=== PATIENT | female | born 1975 ===

== ENCOUNTER 2024-03-03 12:00 | Emergency (ER) | payer BC, SELFPAY ==
[2024-03-03 12:05] VITALS: BP 153/93; PULSE 99; RESP 20; TEMP 36.2; O2SAT 96
--- NOTE | 2024-03-03 12:17 | ECG_ITS ---
Test Date: 2024-03-03 12:20:18 Measurements Intervals [place] Rate: 92 P: 50 AL: 172 QRS: 15 QRSD: 91 T: 67 QT: 361 QTc: 449 Interpretive Statements SINUS RHYTHM NORMAL ELECTROCARDIOGRAM No previous ECG available for comparison Electronically Signed On 03-03-2024 13:50:34 CDT by Crow Dye M.D.
[2024-03-03 14:17] VITALS: BP 183/113; PULSE 85; RESP 16; O2SAT 100
--- NOTE | 2024-03-03 14:46 | ED.ANXIETY ---
HPI - Anxiety General Chief Complaint: Anxiety Stated Complaint: high blood pressure/anxiety Time Seen by Provider: 03/03/24 14:29 History of Present Illness HPI narrative: 48-year-old female presenting to the emergency department for evaluation for increased anxiety. Patient does have a diagnosis of anxiety but does not take anything. Patient was actually at [facility] when she was visiting a family member. Patient states that there was a no other patient at [facility] that became loud and disruptive in this triggered a panic attack. Patient felt that her blood pressure was elevated and on checking her blood pressure at the facility she was 190 systolic. Patient denies any prior history of chest pain. Patient declined any medications for anxiety because she has to drive back to [facility]. Related Data Allergies Allergy/AdvReac Type Severity Reaction Status Date / Time No Known Allergies Allergy Verified 03/03/24 14:21 Review of Systems Review of Systems: All systems reviewed & are unremarkable except as noted in HPI and below PMFSH Social History Social History Substance use type: does not use Exam Narrative: APPEARANCE: Well appearing, no pain, no distress, well-nourished. HEAD: normocephalic, atraumatic. EYES: PERRLA/EOMI, conjunctivae clear. NOSE: Normal no drainage EARS:TMS clear with good light reflex. THROAT: Pharynx clear, no exudate. NECK: Supple. No adenopathy, no masses. RESPIRATORY: Airway patent, respirations nonlabored. Clear to auscultation bilaterally, no rales, rhonchi, wheezing. CARDIOVASCULAR: Regular rate and rhythm without murmurs rubs or gallops. ABDOMINAL: Soft, nontender, nondistended, normal bowel sounds MUSCULOSKELETAL: Moves all extremities. Strength/ROM intact, No edema, No calf tenderness. NEURO: Alert. Cranial nerves II through XII intact. Grossly intact SKIN: Warm, dry. Normal Color PSYCHIATRIC: Anxious affect Course Course Emergency Course: Patient felt improved with treatment. Vital Signs Vital signs: Vital Signs Temperature 97.2 F L 03/03/24 12:05 Pulse Rate 99 03/03/24 12:05 Respiratory Rate 20 03/03/24 12:05 Blood Pressure 153/93 H 03/03/24 12:05 Pulse Oximetry 96 03/03/24 12:05 Temperature 97.2 F L 03/03/24 12:05 Pulse Rate 90 03/03/24 18:24 Respiratory Rate 18 03/03/24 18:24 Blood Pressure 166/83 H 03/03/24 18:24 Pulse Oximetry 99 03/03/24 18:24 Oxygen Delivery Room Air 03/03/24 14:17 MDM - Anxiety MDM Narrative Medical decision making narrative: 40-year-old female presenting ED for evaluation for anxiety and hypertension. Patient was afebrile with a minor leukocytosis 13.4 but a stable hemoglobin of 13.5. Patient had no acute abnormalities on her CMP. Patient had negative serial troponins. Differential Diagnosis Differential diagnosis: Likely hyperventilation, panic disorder, acute anxiety and other Lab Data Attestation: I reviewed the patient's lab results. 03/03/24 14:58 03/03/24 14:58 Labs: Lab Results 03/03/24 03/03/24 Range/Units 14:58 17:42 WBC 13.4 H (4.5-10.0) K/mm3 RBC 4.44 (4.2-5.4) M/mm3 Hgb 13.5 (12.0-15.0) g/dL Hct 39.2 (37.0-47.0) % MCV 88.3 (80-100) fl MCH 30.4 (26-34) pg MCHC 34.4 (32-36) g/dl RDW 13.4 (11.5-14.5) % Plt Count 292 (150-375) k/mm3 MPV 11.0 H (7.4-10.4) fl Immature Gran % (Auto) 0.4 (0-0.5) % Neut % (Auto) 52.8 (45.5-73.1) % Lymph % (Auto) 37.0 (18.3-44.2) % [place] % (Auto) 6.6 (2.6-8.5) % Eos % (Auto) 2.5 (0-4.4) % Baso % (Auto) 0.7 (0.2-1.2) % Lymph # (Auto) 4.95 H (0.9-3.2) K/mm3 [place] # (Auto) 0.9 H (0.1-0.6) K/mm3 Eos # (Auto) 0.3 (0-0.3) K/mm3 Baso # (Auto) 0.1 (0.0-0.1) K/mm3 Abs Immat Gran (auto) 0.05 H (0.00-0.031) K/mm3 Absolute Neuts (auto) 7.1 H (1.3-6.7) K/mm3 Absolute Nucleated RBC 0.000 (0.0-0.012) K/mm3 Nucleated RBC % 0.0 (0.0-0.2) %
[2024-03-03 15:13] LABS: Basophils Absolute Auto 0.1 K/mm3 (0.0-0.1); Basophils Percent Auto 0.7 % (0.2-1.2); Eosinophils Absolute Auto 0.3 K/mm3 (0-0.3); Eosinophils Percent Auto 2.5 % (0-4.4); Hematocrit 39.2 % (37.0-47.0); Hemoglobin 13.5 g/dL (12.0-15.0); Immature Granulocyte Absolute 0.05 K/mm3 (0.00-0.031); Immature Granulocyte Percent A 0.4 % (0-0.5); Lymphocytes Absolute Auto 4.95 K/mm3 (0.9-3.2); Mean Corpuscular HGB Conc 34.4 g/dl (32-36); Mean Corpuscular Hemoglobin 30.4 pg (26-34); Mean Corpuscular Volume 88.3 fl (80-100); Monocytes Absolute Auto 0.9 K/mm3 (0.1-0.6); Monocytes Percent Auto 6.6 % (2.6-8.5); Neutrophils Absolute Auto 7.1 K/mm3 (1.3-6.7); Neutrophils Percent Auto 52.8 % (45.5-73.1); Platelet Count Result 292 k/mm3 (150-375); Red Blood Count 4.44 M/mm3 (4.2-5.4); Red Cell Distribution Width 13.4 % (11.5-14.5); White Blood Count 13.4 K/mm3 (4.5-10.0)
[2024-03-03 15:14] LABS: Alanine Aminotransferase 23 U/L (6-35); Alkaline Phosphatase 73 U/L (38-126); Anion Gap 7 mmol/L (4-12); Aspartate Amino Transferase 25 U/L (14-36); Bilirubin,Total 0.3 mg/dL (0.2-1.3); Blood Urea Nitrogen 10 mg/dL (7-17); Calcium 9.1 mg/dL (8.4-10.2); Carbon Dioxide 24 mmol/L (22-30); Chloride 104 mmol/L (98-107); Estimated CRCL calculation 116 ml/min; Estimated Glomerular Filt Rate > 60; Glucose 94 mg/dL (65-110); Potassium 3.9 mmol/L (3.4-5.0); Sodium 135 mmol/L (137-145)
[2024-03-03 15:25] LABS: Troponin I < 0.012 ng/mL (0.000-0.034)
[2024-03-03] MEDS: hydrALAZINE HCL 20 MG/ML VIAL 10 MG IV PUSH (15:35)
[2024-03-03 15:41] VITALS: BP 172/94; PULSE 80; RESP 19; O2SAT 95
[2024-03-03 18:19] LABS: Troponin I < 0.012 ng/mL (0.000-0.034)
[2024-03-03 18:24] VITALS: BP 166/83; PULSE 90; RESP 18; O2SAT 99
== END 2024-03-03 18:48 | disposition home or self-care (01) ==
PROVIDERS: Emergency Provider Emergency Medicine
DX: F41.9 Anxiety disorder, unspecified (principal); I10 Essential (primary) hypertension
CPT/HCPCS: 36415; 80053; 84484; 85025; 93005; 96374; 99284; J0360